=== PATIENT | female | born 1935 | race African-American/Black ===

== ENCOUNTER 2016-11-17 17:52 | Emergency (ER) | payer BC, MEDICARE ==
[~2016-11-17] VITALS: Ht 165.1 cm; Wt 93.0 kg
[2016-11-17 18:12] VITALS: BP 167/83
== END 2016-11-17 20:14 | disposition left against medical advice (07) ==
LOC: ER 17:56
DX: R10.9 Unspecified abdominal pain (principal); Z53.21 Procedure and treatment not carried out due to patient leaving prior to being seen by health care provider

== ENCOUNTER 2020-01-02 17:12 | Emergency (ER) | payer MEDICARE ==
[~2020-01-02] VITALS: Ht 157.5 cm; Wt 80.0 kg
[2020-01-02 17:18] VITALS: BP 154/80
[2020-01-02] MEDS ORDERED: ACETAMINOPHEN 325MG TABLET PO ONE ×2 (18:15)
[2020-01-02] MEDS ORDERED: SODIUM CHLORIDE 0.9% 1,000 ML IV ONE (18:15)
[2020-01-02 19:05] LABS: HEMATOCRIT. 41.1 % (36.0-48.0); MEAN CORPUSCULAR HEMOGLOBIN 28.9 pg (28.0-32.0); MEAN PLATELET VOLUME 7.5 fl (7.4-10.4); PLATELET 216 x1000/uL (130-400); RED BLOOD CELL COUNT 4.84 mill/uL (4.2-5.4); RED CELL DISTRIBUTION WIDTH 14.4 % (11.6-14.6)
[2020-01-02 19:13] LABS: CHLORIDE 99 mEq/L (98-107)
[2020-01-02 19:59] LABS: ATYPICAL LYMPHOCYTES 1; PLATELET ESTIMATE NORMAL
[2020-01-02 20:55] LABS: CLARITY URINE CLEAR (CLEAR); COLOR URINE YELLOW (YELLOW); KETONES URINE NEGATIVE (NEGATIVE); LEUKOCYTE ESTERASE URINE NEGATIVE (NEGATIVE); NITRITE URINE NEGATIVE (NEGATIVE); OCCULT BLOOD URINE TRACE (NEGATIVE); PROTEIN URINE NEGATIVE (NEGATIVE); SPECIFIC GRAVITY URINE 1.012 (1.005-1.030); UROBILINOGEN URINE 0.2 E.U./dL (0.2-1.0)
== END 2020-01-02 20:30 | disposition home or self-care (01) ==
LOC: ER 17:12
DX: R50.9 Fever, unspecified (principal); R05 Cough; I10 Essential (primary) hypertension; Z85.9 Personal history of malignant neoplasm, unspecified; Z98.890 Other specified postprocedural states
CPT/HCPCS: 36415; 71045; 80053; 81003; 83605; 83880; 84484; 85025; 87040; 87086; 87804; 93005; 99285; J7030; U0003